=== PATIENT | male | born 1985 | race Caucasian/White ===

== ENCOUNTER → 2019-07-30 | Outpatient (CLI) | payer OTHER ==
[~2019-07-30] MED LIST: ALBUTEROL0.09 MG/A2 IH; AMOXICILLIN500 MG PO; ANAPROX DS550 MG PO; HYDROCODONE BIT1 T11 PO; IBU-6600 MG PO; MEDROL DOSEPAK4 MG PO; MOTRIN800 MG PO; NAPROSYN500 MG PO; NKHM; SKELAXIN800 MG PO; TAMIFLU75 MG PO; ULTRAM50 MG PO; VOLTAREN75 MG PO; ZITHROMAX Z PA250 MG PO; ZOFRAN ODT4 MG SL
== END | disposition home or self-care (01) ==
LOC: LAB 12:17
DX: R79.89 Other specified abnormal findings of blood chemistry (principal)

== ENCOUNTER → 2020-09-11 | Outpatient (CLI) | payer SELFPAY | END | disposition home or self-care (01) | LOC: LAB 14:54 | PROVIDERS: ATTEND Family Medicine | DX: R53.83 Other fatigue (principal); R79.89 Other specified abnormal findings of blood chemistry ==

== ENCOUNTER 2021-02-04 09:44 | Emergency (ER) | payer BC ==
[~2021-02-04] VITALS: Ht 165.1 cm; Wt 70.3 kg
[2021-02-04] MEDS ORDERED: NAPROXEN250 MG PO (12:11)
[2021-02-04] MEDS ORDERED: TYLENOL325 M1 PO (12:11)
== END 2021-02-04 12:13 | disposition home or self-care (01) ==
LOC: ED 09:44
DX: S93.402A Sprain of unspecified ligament of left ankle, initial encounter (principal); S93.602A Unspecified sprain of left foot, initial encounter; X58.XXXA Exposure to other specified factors, initial encounter; Y93.89 Activity, other specified; Y92.89 Other specified places as the place of occurrence of the external cause; Y99.8 Other external cause status

== ENCOUNTER 2024-08-24 12:42 | Emergency (ER) | payer BC ==
[~2024-08-24] VITALS: Ht 165.1 cm; Wt 77.1 kg
[~2024-08-24 12:42] MED LIST changes: +NAPROXEN250 MG PO; +TYLENOL325 M1 PO
[2024-08-24] MEDS ORDERED: SODIUM CHLORIDE 0.9% 1,000 ML IV ONE (13:05)
[2024-08-24] MEDS ORDERED: Metoclopramide Hydrochloride 10 MG/2 ML VIAL IV ONE (13:05)
[2024-08-24] MEDS ORDERED: Glucagon Hydrochloride 1 MG SYR IV ONE (13:05)
[2024-08-24] MEDS ORDERED: diphenhydrAMINE hydrochloride 50 MG/ML VIAL IV ONE (13:05)
[2024-08-24] MEDS ORDERED: FAMOTIDINE 50 ML IV ONE (13:05)
[2024-08-24 13:20] LABS: BASO # 0.1 10*3/uL (0.0-0.1); BASO % 1.6 % (0.0-1.0); EOS # 0.2 10*3/uL (0.0-0.4); EOS % 2.8 % (1.0-4.0); HEMATOCRIT 43.3 % (42.0-52.0); MEAN CELL VOLUME 87.7 fl (80.0-94.0); MEAN CORPUSCULAR HGB 29.6 pg (27.0-31.0); MEAN CORPUSCULAR HGB CONC 33.7 g/dl (33.0-37.0); MONO # 0.6 10*3/uL (0.1-1.0); MONO % 7.6 % (3.0-9.0); NEUT # 4.7 10*3/uL (2.3-7.9); NEUT % 63.2 % (47.0-73.0); PLATELET COUNT AUTOMATED 365 10*3/uL (130-400); RED BLOOD COUNT 4.94 10*6/uL (4.50-5.90); RED CELL DISTRI WIDTH 12.4 % (0-14.5); WHITE BLOOD COUNT 7.5 10*3/uL (4.8-10.8)
[2024-08-24 13:39] LABS: POTASSIUM 4.3 mmol/L (3.4-5.1)
[2024-08-24] MEDS ORDERED: Ondansetron4 MG PO (13:54)
[2024-08-24] MEDS ORDERED: PEPCID20 MG PO (13:54)
== END 2024-08-24 14:14 | disposition home or self-care (01) ==
LOC: ED 12:42
PROVIDERS: Emergency Medicine
DX: R11.2 Nausea with vomiting, unspecified (principal); Z79.899 Other long term (current) drug therapy; Z98.890 Other specified postprocedural states